=== PATIENT | female | born 1940 | race Caucasian/White ===

== ENCOUNTER 2024-05-21 14:40 | Inpatient (IN) | payer OTHER, SELFPAY ==
[2024-05-21] VITALS (12 sets, daily range): BP systolic 110–159; BP diastolic 43–110; BMI 31.8
[2024-05-21 11:58] LABS: % Basophils 0.6 % (0-2); % Eosinophils 2.8 % (0-6); % Immature Granulocytes 0.1 % (0-0.5); % Lymphocytes 11.2 % (20.5-51.1); % Monocytes 8.8 % (1.7-9.3); % Neutrophils 76.5 % (42.2-75.2); Absolute Eosinophils 0.2 10^3/uL (0-0.7); Absolute Lymphocytes 0.8 10^3/uL (1.2-3.4); Absolute Monocytes 0.6 10^3/uL (0.1-0.6); Absolute Neutrophils 5.1 10^3/uL (1.4-6.5); Hematocrit 37.7 % (37.0-47.0); Mean Corp Hgb Conc. 31.8 g/dL (33.0-37.0); Mean Corpuscular Hgb 28.5 pg (27.0-31.0); Mean Corpuscular Volume 89.5 fL (81.0-99.0); Mean Platelet Volume 11.1 fL (7.4-10.4); Nucleated Red Blood Cells % 0 %; Platelet Count 236 10^3/uL (130-400); Red Blood Cell Count 4.21 10^6/uL (4.20-5.40); Red Cell Dist. Width 14.3 % (11.5-14.5); White Blood Cell Count 6.7 10^3/uL (4.8-10.8)
--- NOTE | 2024-05-21 12:01 | ED.GENMED ---
History of Present Illness
General
Chief Complaint: Heart Rate Problem
Source: patient
Time Seen by Provider: 05/21/24 11:39
History of Present Illness
History of Present Illness:
84-year-old female brought to the emergency room from where she evidently did not want to get out of bed. She reportedly complained of chest pain and shortness of breath. Her vital signs were measured and she evidently was tachycardic.
911 was called. At the time of my evaluation the patient offers no complaints. She does not have any recollection of why she was brought to the emergency room. She is unable to provide any significant history.
1218: Spoke with patient's daughter who received a call from . Evidently the patient appeared short of breath when the aide came to give her her medication. She appeared to be gasping for air. Patient stated she also had chest pain.
Patient does have a history of atrial fibrillation for which she has been in a rate control management situation. Attempts were made to cardiovert her many years ago which were unsuccessful. Daughter states the patient does not typically complain
of chest pain. She will sometimes complain of palpitations due to A-fib.
Past History
Past History
ED Past Medical History: Arrthythmia and Other (diveticulsis); Negative GERD, HTN, Hypercholesterolemia, IDDM, NIDDM, [place] or Renal failure
ED Past Surgical History: Gynecological; Negative Appendectomy, Bowel resection, Brain or
Social History
Tobacco: Non-smoker
Alcohol: None
Drug: None
Employment: Employed
Family History
Family History: Hypertension
Phy Exam
Physical Exam
Physical Exam:
General: Awake, Alert, Oriented X1. No acute distress.
Vitals: Tach
Head: Atraumatic
Eyes: Pupils equal, EOMI
Throat: Airway intact, no exudates
Neck: Trachea midline
Lungs: Clear and equal b/l
Heart: Tachycardic, irregular rate, no murmurs
Neuro: Nonfocal
Skin: Warm, dry, no rash
Extremities: pulses equal b/l, no edema
Course
Orders/Labs/Results
Orders:
Orders
05/21/24
Electrocardiogram (*1) Stat
Reason for Study: Chest Pain
Comment: DPNE
05/21/24 Breakfast
Cholesterol Lowering
Fluid Restriction: 1200 mL/day (40 oz)
Cholesterol Lowering: Sodium, 2 Gram
05/21/24 11:10
EKG [Electrocardiogram (*1)] Urgent
Reason for Study: Atrial Fibrillation
EKG- Treatment ONCE
05/21/24 11:36
Complete Blood Count/With Diff Urgent
Comprehensive Metabolic Panel Urgent
Pro-BNP [NT-proBNP] Urgent
Troponin I Urgent
05/21/24 12:00
CR Chest - 2 Views Urgent
Comment:
Reason For Exam: shortness of breath
05/21/24 12:07
Prothrombin Time Urgent
05/21/24 13:31
Furosemide [Lasix] 40 mg IV NOW STA
05/21/24 13:54
Admit/Transfer Patient As Directed
Co-Sign Provider:
Level of Care: Inpatient admission
Assign to:: IMU- Intermediate Care
Physician / Group: [email or web address]
Diagnosis: atrial fib with RVR
Reason for Hospitalization: atrial fib with RVR
Expected length of stay greater than two midnights?: Yes
ELOS- Estimated Length of Stay in days: 3
I certify the patient meets the requirements for IP care: Yes
05/21/24 13:55
PRN Pain Medication Management As Directed
May give lesser potent ordered pain med per pt: Yes
preference::
Protocol:: Medication orders for pain may be administered in a
manner that supports deferring to patient preference
when the pt is:
- Requesting an ordered lesser potent pain medication.
Least to most potent pain medications are defined
as: acetaminophen < NSAID < tramadol < opioids
(morphine, oxycodone, hydromorphone).
- Requesting a lesser dose of the same medication IF
ORDERED.
- Requesting a less intrusive route of administration
if both routes are prescribed by the provider (PO <
IV).
05/21/24 13:56
Code Status As Directed
Resuscitation Status: Full Code
05/21/24 15:09
Echo 2D MMode Color/Doppler Routine
Reason for Study: heart failure
CARDIOLOGY CONSULT Routine
Consulting Provider: Abhay Haynes
Was physician already notified: Yes
HF DIETARY CONSULT Routine
HF EDUCATOR CONSULT Routine
Comment:
Activity As Directed
Activity Level: As Tolerated
Intake/ Output As Directed
Frequency: Per unit guidelines
Patient Education As Directed
Type: CHF folder
Comment: give on admission. Document in Interdisciplinary Education record
Sleep Apnea Assessment by RN As Directed
Comment:
Physician Instructions:
Vital Signs As Directed
Frequency: Other
Additional Instructions:: Q12 or per unit guidelines if more frequent.
Weight As Directed
Frequency: Daily
Type of Scale: Standing Scale
Comment: Daily morning weight. If unable to stand, use balanced bed scale.
Weight As Directed
Frequency: Once
Type of Scale: Standing Scale
Comment: Upon Admission. If unable to stand, use balanced bed scale.
Pulse Ox/cont/shift [RESP] Routine
Quantity: 1
Special Instructions: Daily pulse oximetry at rest. If greater than 92% at rest also obtain pulse oximetry
while ambulating as tolerated.
Pt Eval And Treat Routine
Activity Level: As Tolerated
05/21/24 20:00
Diltiazem [Cardizem] 30 mg PO BID
05/22/24 06:00
Basic Metabolic Panel IN AM
Cardiovascular Evaluation IN AM
Complete Blood Count/With Diff IN AM
Kqirt-Vlua-Kzacdck IN AM
Magnesium IN AM
PT/INR [Prothrombin Time] IN AM
TSH Reflex To Free T4 IN AM
05/22/24 08:00
Furosemide [Lasix] 40 mg IV DAILY
Metoprolol Xl [Toprol Xl] 100 mg PO DAILY
Triamcinolone Cream [Aristocort/Triamcinolone 0.1% Cream] See Dose Instructions TOPICAL DAILY
Warfarin [Coumadin] 5 mg PO DAILY
05/23/24 06:00
Basic Metabolic Panel IN AM
Complete Blood Count/With Diff IN AM
PT/INR [Prothrombin Time] IN AM
05/24/24 06:00
Basic Metabolic Panel IN AM
Complete Blood Count/With Diff IN AM
PT/INR [Prothrombin Time] IN AM
05/25/24 06:00
Complete Blood Count/With Diff IN AM
PT/INR [Prothrombin Time] IN AM
05/26/24 06:00
Complete Blood Count/With Diff IN AM
PT/INR [Prothrombin Time] IN AM
Abnormal Lab Results
05/21/24 05/21/24
11:36 12:07
MCHC 31.8 L g/dL
(33.0-37.0)
MPV 11.1 H fL
(7.4-10.4)
Absolute Lymphs (auto) 0.8 L 10^3/uL
(1.2-3.4)
Neutrophils % 76.5 H %
(42.2-75.2)
Lymphocytes % 11.2 L %
(20.5-51.1)
PT 19.9 H Sec
(11.4-14.6)
BUN 19 H mg/dl
(7-17)
Creatinine 0.4 L mg/dL
(0.6-1.0)
Alkaline Phosphatase 141 H U/L
(38-126)
Total Protein 6.2 L g/dl
(6.3-8.2)
Albumin 3.3 L g/dl
(3.5-5.0)
05/21/24 11:36
05/21/24 11:36
Vital Signs
Initial and Last Documented VS:
Initial Vital Signs
Pulse Resp BP Pulse Ox
108 17 155/81 96
05/21/24 11:16 05/21/24 11:16 05/21/24 11:16 05/21/24 11:16
Last Documented Vital Signs
Temp Pulse Resp BP Pulse Ox
98.1 F 152 20 157/110 97
05/21/24 11:29 05/21/24 14:30 05/21/24 14:00 05/21/24 13:41 05/21/24 13:30
MDM/Problems Addressed
Differential Diagnosis Includes:
Atrial fibrillation with rapid ventricular response, dehydration, anemia,
MDM/Problems Addressed:
Patient presents with chest pain, shortness of breath and heart rate that is elevated. Clinically she appears to have heart failure. Chest x-ray shows pleural effusions. Suspect her heart rate may be less than adequately controlled due to heart
failure. Started diuresis with 40 mg of IV Lasix. Patient will hospitalization for further treatment.
Chronic conditions affecting care: HTN and Arrhythmia (Atrial fibrillation)
*Radiology
Radiology exam reviewed: preliminary read by ED provider (Effusions and pulmonary edema)
*Pulse Oximetry
Patient hypoxic: no
*EKG
Interpreted by ED Provider?: Yes
Interpretation: abnormal
Heart Rate: 107
Rate: tachycardiac
Rhythm: a-fib
QRS Pattern: right bundle branch block (intermittent rbbb)
*Tile Layer Drainage Interpretation
Rate: tachycardiac
Interpretation: abnormal
Rhythm: a-fib
*Critical Care Note
Total Time (30-74mins, 75-104mins- exclusive of procedures): Not Applicable
ED Attending Note
-
Portions of this chart may have been created with voice recognition software.� Occasional wrong word or��sound alike� substitutions may have occurred due to the inherent limitations of voice recognition software.
Discharge Plan
Departure
Patient Disposition: Admit
Date of Disposition: 05/21/24
Time of Disposition: 13:33
Presentation/result/management discussed w/ accepting MD/DO: Hospitalist
Condition: Fair
Discharge Problem:
CHF (congestive heart failure)
Interventions
Interventions:
*Risk Screen - Suicide Last Done: 05/21/24 11:32
*General Assessment Last Done: 05/21/24 15:20
*Neglect/Abuse Screening Last Done: 05/21/24 11:32
ED- Fall Risk Assessment Last Done: 05/21/24 11:32
*ED COVID-19 Vaccine History Last Done: 05/21/24 15:20
*Nursing Disposition Last Done: 05/21/24 15:20
ED- Cardiac Assessment Last Done: 05/21/24 11:32
ED- Pulmonary Assessment Last Done: 05/21/24 11:32
Discharge Date and Time
Discharge Date/Time: 05/21/24 15:21
[2024-05-21 12:24] LABS: ALT (SGPT) 25 U/L (0-35); AST (SGOT) 31 U/L (14-36); Albumin 3.3 g/dl (3.5-5.0); Alkaline Phosphatase 141 U/L (38-126); Blood Urea Nitrogen 19 mg/dl (7-17); Calcium 8.4 mg/dl (8.4-10.2); Carbon Dioxide 26 mmol/L (22-30); Chloride 107 mmol/L (98-107); Estimated Creatinine Clearance 87 ml/min; Glucose 96 mg/dl (70-99); Potassium 3.7 mmol/L (3.5-5.1); Sodium 141 mmol/L (135-145); Total Bilirubin 0.9 mg/dl (0.2-1.3); Total Protein 6.2 g/dl (6.3-8.2); eGFR > 60.00
[2024-05-21 12:25] LABS: NT-proBNP 960 pg/ml; Troponin I < 0.012 ng/ml
[2024-05-21 12:34] LABS: INR 1.71; PT 19.9 Sec (11.4-14.6)
--- NOTE | 2024-05-21 13:38 | HPS.HSE ---
Family Physician
-
Family Physician: Spencer Velazquez MD
Chief Complaint
-
sob
chest pain
History of Present Illness
84-year-old female with PMH for cognitive impairment, atrial fib with chest pain,and sob this morning. patient is coming from [facility]. she was noted sob at [place]. at present denied chest pain, sob. denied fever, chills, runny nose, congestion,
cough.denied abdominal pain,n,v,d. denied dysuria or hematuria. she was noted tachycardic at AL. patient does not remember any thing.
upon arrival she was noted in atrial fib with RVR. she was given Lasix in ER. admitting for further management.
Medical History
Past Medical History
Past Medical History: Reports Other
Additional Past Medical History:
atrial fib
cognitive impairment
Past Surgical History: Reports None
Social History
Unable to obtain full social history at this time due to: Dementia
Family History
Family History: Not pertinent
Allergies / Home Medications
Allergies reflects when Allergies were last updated in [facility]
Home Medications with original date entered in [facility]
Allergy/Medication List:
Allergies
Allergy/AdvReac Type Severity Reaction Status Date / Time
levofloxacin [From Levaquin] Allergy dizzy Verified 11/04/10 12:45
metronidazole [From Flagyl] Allergy vomiting Verified 11/04/10 12:45
Metronidazole HCl Allergy vomiting Verified 11/04/10 12:45
[From Flagyl]
Home Medications
warfarin 5 mg tablet 5 mg PO DAILY 11/04/10
diltiazem HCl 30 mg tablet 30 mg PO BID 05/21/24
furosemide 20 mg tablet 20 mg PO DAILY 05/21/24
metoprolol succinate 100 mg tablet,extended release 24 hr 100 mg PO DAILY 05/21/24
triamcinolone acetonide 0.1 % topical cream 1 applic topical DAILY 05/21/24
Review of Systems
-
Constitutional: Reports No Symptoms
EENT: Reports No Symptoms
Respiratory: Reports No Symptoms
Cardiac: Reports No Symptoms
Abdomen/GI: Reports No Symptoms
: Reports No Symptoms
Musculoskeletal: Reports No Symptoms
Skin: Reports No Symptoms
Neurological: Reports No Symptoms
Endocrine: Reports No Symptoms
Hematologic/Lymphatic: Reports No Symptoms
Psych: Reports No Symptoms
Physical Exam
Vital Signs
Vital Signs
Temp Pulse Resp BP Pulse Ox
98.1 F 134 19 152/107 97
05/21/24 11:29 05/21/24 13:30 05/21/24 13:30 05/21/24 13:17 05/21/24 13:30
Physical Exam
General: Well Developed, Well Nourished and No Apparent Distress
HEENT: NormoCephalic, Moist mucous membranes and Atraumatic
Respiratory: Decreased Breath Sounds
Cardiac: Irregular Rhythm, Tachycardia and Peripheral Edema (LE edema); No Murmur or Rub
GI: Soft, Non Tender, Non Distended and Normal Bowel Sounds; No Organomegaly
Rectal: Deferred by Provider
Musculoskeletal: No Clubbing and No Cyanosis
Skin: No Rash
Neuro: Nonfocal/grossly intact
Psych: Confused
Laboratory Results
-
05/21/24 11:36
05/21/24 11:36
Laboratory Results
PT 19.9 Sec (11.4-14.6) H 05/21/24 12:07
INR 1.71 05/21/24 12:07
Total Bilirubin 0.9 mg/dl (0.2-1.3) 05/21/24 11:36
AST 31 U/L (14-36) 05/21/24 11:36
ALT 25 U/L (0-35) 05/21/24 11:36
Alkaline Phosphatase 141 U/L (38-126) H 05/21/24 11:36
Troponin I < 0.012 ng/ml 05/21/24 11:36
Data Reviewed
-
Lab Data: Labs Reviewed by me
Impression/Plan
-
#CHF exacerbation
-BNp 960
-chest x ray pending
-Lasix in ER
-continue lasix 40mg daily
-strict I &O
-daily weight
-fluid restriction
-obtain ECHO
-cardiology consulted
#atrial fib with RVR
-HR in 130's
-EKG with atrial fib with RVR
-diltiazem continued
-metoprolol continued
-Coumadin continued
#DVT prophylaxis
-warfarin
#CODE status
-full code
[2024-05-21] MEDS: LASIX 40 MG IV (13:40)
--- NOTE | 2024-05-21 14:18 | W.PN.UPDATE ---
Update Note
Progress Note Update
I could not get any information from the patient is confused with mild dementia /MCI
Information gathered by chart review and speaking with the ER staff.
This note serves as an addendum to the H&P by maintenance and utilities supervisor BAKARI Patience CONTRERAS
HPI
84F Non smoker , BIB [facility] HX mild dementia/MCI , HX AF on Warfarin, remote HX failed attepmted CV for AF, HTN, DM, CKD sent to ER for CP and SOB
Denied CP at ER,
VS: irregular HR 130s . BP 157/110. POx hi 90s on RA
OE:
POS JVD
symmetric AE with basilar rales
B/L Jennifer 3 plus edema
W/U
EKG c/w fast AF , VR 120- 140s
CXR suggestive of CHF: s/p IV lasix 40 at ER.
Unremarkable CBC
Unremarkable CMP
NEG No.1 TPN
pro BNP 960: No prior ECHO
INR 1.9
ASSESSMENT & PLAN
Volume overload
Acute HF suspect CHF NOS
Fast AF due to acute HF: HX chr AF on Warfarin: INR1.9
- c/w IV Lasix 40 daily; f/u Wt and IOs, daily BMP
- PO Cardizem 60 mg once: cont Cardizem 30 mg q6H
- c/w Warfarin : daily INR
- ECHO
- DCA card consult
DVT Px: on Warfarin
Code: full code
IP TLM
--- NOTE | 2024-05-21 15:08 | CON.CAR ---
Addendum entered and electronically signed by Colton Castellano DO 05/21/24 16:13:
I saw and examined the patient.
The Grain Cleaner's note was reviewed and I agree with the note.
Comment:
Briefly, patient is a pleasant 84-year-old female with a past medical history significant for likely permanent atrial fibrillation, chronic anticoagulation on Coumadin, dementia/cognitive impairment (ANO x 1�self only), hypertension, complete
records unavailable, who previously follow-up with Dr. Paz for cardiovascular care who presented reportedly due to shortness of breath and discomfort in the chest. In discussion with patient today, she denies any complaints at this time.
Patient noted to be in AF RVR 130 to 150 bpm hemodynamically stable. Patient denies any chest pain, shortness of breath, lightheadedness, dizziness, near-syncope, syncope, PND, orthopnea, or weakness. Patient does note bilateral lower extremity
swelling but cannot recall how long it has been going on. Patient notes that she takes cardiovascular meds but is unsure the names. Patient lives at assisted [facility] where she receives her care. As noted, patient BNP 960,
troponin negative, EKG AF RVR, remaining lab work unremarkable aside from mild hypokalemia 3.7. Examination demonstrates bibasilar crackles, bilateral lower extremity swelling, and patient does report that she feels more comfortable while sitting
upright on the commode rather than laying in bed which may represent orthopnea.
Exam as below
A/P as below
Patient is acute on chronic heart failure with unclear LVEF as records unavailable. Noted by examination and elevated BNP without prior diagnosis of heart failure. Patient currently in AF RVR unclear chronicity based on her atrial fibrillation.
It is likely, patient noted to have AF in 2010, that this is permanent atrial fibrillation for which she is minimally symptomatic. The elevated rate may be physiologic in nature given her acute on chronic heart failure. With this in mind:
� IV diuresis, strict intake and output, monitor renal function and electrolytes
� Replete electrolytes goal potassium greater than 4, magnesium greater than 2
� Rule out other etiologies for patient to be in AF RVR which may be physiologic including infectious etiology
� Diltiazem drip for rate control and assistance in diuresis
� 2D echocardiogram to assess patient's cardiac function and valvular anatomy
� Continue Coumadin goal INR 2�3; patient may benefit from DOAC however unclear at this time reason for patient being on Coumadin. Awaiting records from primary dye range tender office
� Further recommendations to follow
Original Note:
Consultation
Consultation Request
Date/Time Consultation Requested: 05/21/2024
Date/Time Consultation Performed: 05/21/2020
Requesting Provider: Dr. Batista
Performing Provider: Charline Vegas PA-C for Dr. Castellano
Reason for Consultation: Atrial fibrillation with rapid ventricular response, shortness of breath
Medical History
-
History of Present Illness:
Patient is an 84-year-old female with past medical history for permanent atrial fibrillation on chronic anticoagulation with Coumadin, dementia/cognitive impairment and hypertension who presents from [facility] with complaints of
shortness of breath, chest discomfort and tachycardia. Patient was found to be in atrial fibrillation with rapid ventricular response on arrival to emergency department. Chest x-ray demonstrated small bilateral pleural effusions and patchy
parenchymal opacity in bilateral lower lungs likely atelectasis. Troponin negative. proBNP 960. INR 1.71. Patient was given IV Lasix 40 mg in emergency department.
Patient is very poor historian and history obtained by review of records and coordinating care providers.
PMH:
Permanent atrial fibrillation
Chronic anticoagulation on warfarin
Hypertension
Cognitive impairment/dementia
Past Medical History
Past Medical History: Other (See HPI)
Past Surgical History: Appendectomy, Bowel Resection and
Social History
Tobacco: Non-Smoker
Alcohol: None
Drug: None
Living: Prison
Family History
Family History: Reviewed & Not Pertinent
Allergies / Home Medications
Allergy/AdvReac Type Severity Reaction Status Date / Time
levofloxacin [From Levaquin] Allergy dizzy Verified 11/04/10 12:45
metronidazole [From Flagyl] Allergy vomiting Verified 11/04/10 12:45
Metronidazole HCl Allergy vomiting Verified 11/04/10 12:45
[From OWMyl]
�Medication �Instructions �Recorded �Confirmed �Type
warfarin 5 mg tablet 5 mg PO DAILY 11/04/10 05/21/24 History
diltiazem HCl 30 mg tablet 30 mg PO BID 05/21/24 05/21/24 History
furosemide 20 mg tablet 20 mg PO DAILY 05/21/24 05/21/24 History
metoprolol succinate 100 mg 100 mg PO DAILY 05/21/24 05/21/24 History
tablet,extended release 24 hr
triamcinolone acetonide 0.1 % 1 applic topical DAILY 05/21/24 05/21/24 History
topical cream
Review of Systems
-
Unable to obtain full review of systems at this time due to: Dementia
History Source: Transfer Record and Coordinating Provider
Physical Exam
Vital Signs
Temp Pulse Resp BP Pulse Ox
98.1 F 152 20 157/110 97
05/21/24 11:29 05/21/24 14:30 05/21/24 14:00 05/21/24 13:41 05/21/24 13:30
GEN: No distress, awake, alert to self only
HEENT: supple, anicteric, mmm
LUNGS: Decreased breath sounds at bases otherwise CTA, no wheezes/rales
CV: Irregularly irregular, tachycardic, S1/S2, 1/6 syst LSB murmur, no rub or gallop
ABD: soft, BS+, NT/ND
EXT: +2 bilateral pitting lower extremity edema
NEURO: Pleasantly demented
SKIN: Rash noted on lower extremities, arm, back. Areas of excoriation also noted
Lab Results
05/21/24 11:36
05/21/24 11:36
Troponin I < 0.012 ng/ml 05/21/24 11:36
Ayd-D-Jwyuyxqskld Pept 960 pg/ml 05/21/24 11:36
Impression / Plan
-
PCP: Spencer Velazquez
Service Associate: Previously followed by Dr. Jarad Rosas who has retired, initial consult Dr. Colton Castellano
Impression:
Presents 05/21/2024 with shortness of breath, palpitations, tachycardia, chest discomfort
Atrial fibrillation with rapid ventricular response
Acute on chronic heart failure with unknown ejection fraction, proBNP 960
Pleural effusions
Permanent atrial fibrillation
Chronic anticoagulation on Coumadin
Hypertension
Cognitive impairment/dementia
Plan:
Presents 05/21/2024 from [place] with shortness of breath, palpitations, tachycardia, chest discomfort
Atrial fibrillation with rapid ventricular response
Rate control with IV diltiazem gtt. pending results of echocardiogram can make further decision on antiarrhythmic drug therapy versus uptitrating diltiazem
Monitor on telemetry
Maintained on warfarin with INR subtherapeutic 1.71. Consider transitioning to Eliquis or Xarelto if no contraindication
Check TSH
check echo
Patient maintained on diltiazem 30 mg twice daily and metoprolol 100 mg daily as outpatient
Acute on chronic heart failure with unknown ejection fraction, proBNP 960
Patient provided 40 mg IV Lasix in emergency department. Monitor and trend response. Patient takes Lasix 20 mg daily as outpatient
Continue IV diuresis with Lasix 40 mg daily
Daily weights, I's and O's
BMP in a.m.
Would check echo as unknown ejection fraction
Pleural effusions small bilateral. Monitor with IV diuresis.
Hypertension maintained on Toprol 100 mg daily and diltiazem 30 mg twice daily as outpatient. Continue to monitor and trend blood pressure with diuresis
Requested records from outpt dye range tender Dr. Jarad Rosas
HPI 05/21/2024:
Patient is an 84-year-old female with past medical history for permanent atrial fibrillation on chronic anticoagulation with Coumadin, dementia/cognitive impairment and hypertension who presents from [facility] with complaints of
shortness of breath, chest discomfort and tachycardia. Patient was found to be in atrial fibrillation with rapid ventricular response on arrival to emergency department. She was placed on IV diltiazem drip. Chest x-ray demonstrated small
bilateral pleural effusions and patchy parenchymal opacity in bilateral lower lungs likely atelectasis. Troponin negative. proBNP 960. INR 1.71. Patient was given IV Lasix 40 mg in emergency department.
Patient is very poor historian and history obtained by review of records and coordinating care providers.
Data Reviewed
-
EKG: Report Reviewed by me, Discussed with Physician, Discussed with Nurse and Discussed with Patient
Radiology: Report Reviewed by me, Discussed with Physician, Discussed with Nurse and Discussed with Patient
Labs: Labs Reviewed by me, Discussed with Physician, Discussed with Nurse and Discussed with Patient
Old Records: Reviewed
--- NOTE | 2024-05-21 15:20 | PTCARENOTE ---
Patient arrived via stretcher. She is oriented to person and place, but is poor historian. She cannot recall how she got to the hospital. She does not where or when the rash began-it is diffuse on back, legs arms torso. She is scratching all areas.
Heart rate is A-fib 140s, BP 152/96 She is 94% on room air
--- NOTE | 2024-05-21 15:41 | PTCARENOTE ---
Call to Dr. Batista and awaiting orders. cardiology at bedside now and aware of heart rate and BP
[2024-05-21] MEDS: ARISTOCORT/TRIAMCINOLONE 0.1% CREAM 1 APPLIC TOPICAL (16:24)
[2024-05-21] MEDS: CARDIZEM 125 IV (16:26)
[2024-05-21] MEDS: BENADRYL ELIXIR 12.5 MG PO (16:33)
--- NOTE | 2024-05-21 18:32 | PTCARENOTE ---
Patient restless, unsure of why she is here and getting in/out bed without using call light. pt does have history of dementia , med [employer] mobile unit set up in room for pt safety. Pt does not follow through with call light. Pt on Cardizem gtt and
heart rate continues >100. Roseline SINGLETON aware of persistent elevated heart rate. p.o. Cardizem doses will be given as ordered. This RN attempting to use Purewick for pt to remain at rest, but pt struggling to understand concept. Daughter Kat
arrived and has been updated on plan of care and treatment plan. Kat reports the skin rash on pt has been present since FEBRUARY.
[2024-05-21] MEDS: CARDIZEM 30 MG PO (20:01)
[2024-05-22] VITALS (15 sets, daily range): BP systolic 108–135; BP diastolic 51–94; PULSE 58; O2SAT 95; BMI 29.8
[2024-05-22] MEDS: CARDIZEM 125 IV (01:21)
[2024-05-22] MEDS: BENADRYL ELIXIR 12.5 MG PO ×2 (02:56→21:41)
--- NOTE | 2024-05-22 03:38 | PTCARENOTE ---
Patient able to sleep until about 3AM, then woke up restless and c/o severe itching to entire back. Back rub provided with moisture barrier and Benadryl prn. Pt has scratched areas on her back that have a small amount of old bleeding. Bilat LE pink,
irritated and swollen. Pt forgetful but pleasant. Tele showing Afib HR 100-130s yesterday evening, now HR is 70-90s. Voids in BSC; HR increased to 120-130s briefly upon exertion. Denies any dizziness or palpitations. Reports PACHECO. Cardizem gtt
titrated per the worklist. Able to turn self while in bed. Med-sitter at bedside for safety. Call floyd and tray table within reach. RN sitting outside closest nurses station for closer observation.
[2024-05-22 03:54] LABS: % Basophils 0.6 % (0-2); % Eosinophils 1.7 % (0-6); % Immature Granulocytes 0.2 % (0-0.5); % Lymphocytes 8.7 % (20.5-51.1); % Monocytes 7.9 % (1.7-9.3); % Neutrophils 80.9 % (42.2-75.2); Absolute Basophils 0.1 10^3/uL (0-0.2); Absolute Eosinophils 0.1 10^3/uL (0-0.7); Absolute Lymphocytes 0.7 10^3/uL (1.2-3.4); Absolute Monocytes 0.6 10^3/uL (0.1-0.6); Absolute Neutrophils 6.6 10^3/uL (1.4-6.5); Hematocrit 37.5 % (37.0-47.0); Hemoglobin 12.2 g/dL (12.0-16.0); Mean Corp Hgb Conc. 32.5 g/dL (33.0-37.0); Mean Corpuscular Hgb 29.2 pg (27.0-31.0); Mean Corpuscular Volume 89.7 fL (81.0-99.0); Mean Platelet Volume 10.7 fL (7.4-10.4); Nucleated Red Blood Cells % 0 %; Platelet Count 258 10^3/uL (130-400); Red Blood Cell Count 4.18 10^6/uL (4.20-5.40); Red Cell Dist. Width 14.2 % (11.5-14.5); White Blood Cell Count 8.1 10^3/uL (4.8-10.8)
[2024-05-22 03:58] LABS: INR 1.53; PT 18.2 Sec (11.4-14.6)
[2024-05-22 04:07] LABS: ALT (SGPT) 28 U/L (0-35); AST (SGOT) 34 U/L (14-36); Albumin 3.8 g/dl (3.5-5.0); Alkaline Phosphatase 155 U/L (38-126); Blood Urea Nitrogen 23 mg/dl (7-17); Calcium 9.5 mg/dl (8.4-10.2); Carbon Dioxide 28 mmol/L (22-30); Chloride 103 mmol/L (98-107); Direct Bilirubin 0.2 mg/dl (0.0-0.4); Estimated Creatinine Clearance 87 ml/min; Glucose 135 mg/dl (70-99); HDL Cholesterol 82 mg/dl; LDL Cholesterol, Calculated 117 mg/dl; Magnesium 1.8 mg/dl (1.6-2.3); Potassium 3.7 mmol/L (3.5-5.1); Sodium 141 mmol/L (135-145); Total Bilirubin 1.3 mg/dl (0.2-1.3); Total Cholesterol 215 mg/dl (50-199); Total Protein 6.6 g/dl (6.3-8.2); Triglyceride 83 mg/dl (10-149); Very Low Density Lipoprotein 16 mg/dl (0-30); eGFR > 60.00
[2024-05-22 04:37] LABS: TSH Reflex To Free T4 2.77 uIU/ml (0.47-4.68)
[2024-05-22] MEDS: ARISTOCORT/TRIAMCINOLONE 0.1% CREAM 1 APPLIC TOPICAL (10:00)
[2024-05-22] MEDS: COUMADIN 5 MG PO (10:00)
[2024-05-22] MEDS: LASIX 40 MG IV (10:01)
[2024-05-22] MEDS: TOPROL XL 100 MG PO (10:01)
[2024-05-22] MEDS: CARDIZEM 30 MG PO ×2 (10:02→20:53)
--- NOTE | 2024-05-22 10:09 | PTCARENOTE ---
Cardizem gtt stopped at this time per Dr. Best, HR has been 70-90's. PO Cardizem administered with am med pass.
--- NOTE | 2024-05-22 12:04 | PTCARENOTE ---
Pt's remains pleasantly confused, forgetful, oriented to self only. Bed and chair alarms armed. Pt assisted up to chair this am and remains there. Oral care provided after breakfast, pt took PO medications with water, ambulated in navarrete with PT
around 11:30. Daughter updated via phone by this RN. Pt's HR dipping to 39-50 range with occ pauses, cards notified by TT, no further orders at this time. Safe environment maintained.
--- NOTE | 2024-05-22 12:11 | W.PN.CARDCBS ---
Today's Communication / Plan
-
Stop Cardizem drip. Watch for bradycardia.
Continue oral Cardizem and Toprol with parameters. Rec rate control
Continue IV Lasix and follow creatinine.
Await echo.
Impression / Plan
-
PCP: Spencer Velazquez
Assistant Clinical Director: Previously followed by Dr. Jarad Rosas who has retired, initial consult Dr. Colton Castellano
Impression:
Presents 05/21/2024 with shortness of breath, palpitations, tachycardia, chest discomfort
Atrial fibrillation with rapid ventricular response
Acute on chronic heart failure with unknown ejection fraction, proBNP 960
Pleural effusions
Permanent atrial fibrillation
Chronic anticoagulation on Coumadin
Hypertension
Cognitive impairment/dementia
Plan:
Presents 05/21/2024 from [place] with shortness of breath, palpitations, tachycardia, chest discomfort
Atrial fibrillation with rapid ventricular response
Now off Cardizem drip with some bradycardia. Continue to follow. Would continue Toprol 100 mg XL daily and diltiazem 30 mg p.o. twice daily.
Will need to watch for bradycardia. Continue Coumadin. INR 1.53
Acute on chronic heart failure with unknown ejection fraction, proBNP 960
Continue diuresis with Lasix 40 mg IV twice daily. CHF education. Check echocardiogram today.
Creat normal at 0.6
Pleural effusions small bilateral. Monitor with IV diuresis.
Hypertension maintained on Toprol 100 mg daily and diltiazem 30 mg twice daily as outpatient. Continue to monitor and trend blood pressure with diuresis
[facility] 05/21/2024:
Patient is an 84-year-old female with past medical history for permanent atrial fibrillation on chronic anticoagulation with Coumadin, dementia/cognitive impairment and hypertension who presents from [facility] with complaints of
shortness of breath, chest discomfort and tachycardia. Patient was found to be in atrial fibrillation with rapid ventricular response on arrival to emergency department. She was placed on IV diltiazem drip. Chest x-ray demonstrated small
bilateral pleural effusions and patchy parenchymal opacity in bilateral lower lungs likely atelectasis. Troponin negative. proBNP 960. INR 1.71. Patient was given IV Lasix 40 mg in emergency department.
Patient is very poor historian and history obtained by review of records and coordinating care providers.
Progress Note - Assistant Clinical Director
Subjective
Denies chest pains or shortness of breath.
Objective
Labs:
05/22/24 03:31
05/22/24 03:31
Labs
Hgb 12.2 g/dL (12.0-16.0) 05/22/24 03:31
Hct 37.5 % (37.0-47.0) 05/22/24 03:31
Plt Count 258 10^3/uL (130-400) 05/22/24 03:31
PT 18.2 Sec (11.4-14.6) H 05/22/24 03:31
INR 1.53 05/22/24 03:31
Sodium 141 mmol/L (135-145) 05/22/24 03:31
Potassium 3.7 mmol/L (3.5-5.1) 05/22/24 03:31
BUN 23 mg/dl (7-17) H 05/22/24 03:31
Creatinine 0.6 mg/dL (0.6-1.0) 05/22/24 03:31
Glucose 135 mg/dl (70-99) H 05/22/24 03:31
Troponins
05/21/24
11:36
Troponin I < 0.012
Vital Signs and I&O:
Vital Signs
Temp Pulse Resp BP Pulse Ox
98.3 F 72 19 108/67 95
05/22/24 07:51 05/22/24 12:00 05/22/24 12:00 05/22/24 12:00 05/22/24 12:00
Vital Signs
Temp Pulse Resp BP Pulse Ox
98.3 F 72 19 108/67 95
05/22/24 07:51 05/22/24 12:00 05/22/24 12:00 05/22/24 12:00 05/22/24 12:00
Intake & Output
05/20/24 05/21/24 05/22/24 05/23/24
06:59 06:59 06:59 06:59
Intake Total 240 / 240 480 / 480
Output Total 2725 / 2725
Balance -2485 / -2485 480 / 480
Physical Exam
Physical Exam
GEN: No distress, awake,
HEENT: supple, anicteric, mmm
LUNGS: scatt rhonchi
CV: Irreg, S1/S2, 1/6 syst LSB, S4+
ABD: soft, BS+, NT/ND
EXT: ++ edema
NEURO: Gross non-focal
SKIN: No rash
--- NOTE | 2024-05-22 13:22 | WOUNDNOTE ---
R POSTERIOR LOWER LEG
--- NOTE | 2024-05-22 13:25 | WOUNDNOTE ---
WON RN NOTE: Patient admitted with CHF from [facility]. Asked to see patient for diffuse rash on limbs. Nurse Reports she has had rash since February according to patient's daughter. Received patient in recliner chair, scratching at R posterior leg.
Rash seems to be resolving on limbs, very faint pink patches in places. Skin on legs very dry. Sacrum and heels intact. Applied Triamcinolone that was on order to legs and back. Patient states its less itchy now. Instructed patient not to scratch
legs, nurse Disa updated on the above. Recommend continue using above cream, will sign off.
--- NOTE | 2024-05-22 16:02 | W.PN.HOSP.TC ---
Today's Communication/Plan
-
follow HR next 24 hrs, if continues to do well and cardio in agreement, potential dc to facility tomorrow
Assessment / Plan
Assessment / Plan
#CHF exacerbation
-BNp 960
-chest x ray: Small bilateral pleural effusions, new from examination 2010. Patchy parenchymal opacity within both lower lungs, most likely atelectasis, although pneumonia could have a similar appearance.
Cardiomegaly. No convincing radiographic evidence for active vascular congestion.
-Lasix in ER
-continue lasix 40mg daily
-strict I &O
-daily weight
-fluid restriction
- ECHO: Normal left ventricular chamber size. Mild concentric left ventricular
hypertrophy. Normal regional wall motion. Normal left ventricular systolic
function. Left ventricular ejection fraction is 67% by Suh's biplane method
of discs. Diastolic function indeterminate due to atrial fibrillation.
Normal right ventricular size and function.
Moderate mitral regurgitation.
Mild to moderate tricuspid regurgitation. Estimated pulmonary artery pressure
of 65 mmHg, assuming a right atrial pressure of 8 mmHg.
-cardiology consulted, input appreciated
#atrial fib with RVR
-HR in 130's on admission, now in 70's
-EKG with atrial fib with RVR
-diltiazem continued
-metoprolol continued
-Coumadin continued,will give extra 2 mg now and recheck in AM, consider uptitrate to 6 mg daily
#DVT prophylaxis
-warfarin
Reviewed fully with Kat silverio
#CODE status
-reviewed with dgt, pt is a DNR
Anticipated Discharge: 24 - 48 hours
Subjective/Interval History
-
Date of Service: May 22, 2024
awake alert, sitting in chair
Objective Data
-
Labs:
Laboratory Results
05/22/24
03:31
PT 18.2 H
INR 1.53
Sodium 141
Potassium 3.7
Chloride 103
Carbon Dioxide 28
BUN 23 H
Creatinine 0.6
Glucose 135 H
Calcium 9.5
Total Bilirubin 1.3
AST 34
ALT 28
Alkaline Phosphatase 155 H
Vital Signs:
Vital Signs
Temp Pulse Resp BP Pulse Ox
97.7 F 78 19 126/57 95
05/22/24 15:28 05/22/24 14:00 05/22/24 14:00 05/22/24 14:00 05/22/24 12:00
I&O
05/21/24 05/22/24 05/23/24
06:59 06:59 06:59
Intake Total 240 / 240 480 / 480
Output Total 2725 / 2725
Balance -2485 / -2485 480 / 480
Review of Systems
-
Unable to obtain full review of systems at this time due to: Dementia
History Source: Family (reviewed with dgt)
Constitutional: Denies Fever
EENT: Reports No Symptoms Reported
Respiratory: Reports No Symptoms
Cardiac: Reports No Symptoms
Abdomen/GI: Reports No Symptoms
Musculoskeletal: Reports No Symptoms
Physical Exam
-
General: Well Developed, Well Nourished and No Apparent Distress
HEENT: Normocephalic, Atraumatic and Moist Mucous Membranes
Respiratory: Clear to Auscultation, Wheezes and Rales
Cardiac: S1/S2 and Irregular Rhythm
GI: Soft, Nontender and Nondistended
Musculoskeletal: No Clubbing, No Cyanosis and No Edema
Neuro: Awake and Alert
[2024-05-22] MEDS: COUMADIN 2 MG PO (16:28)
--- NOTE | 2024-05-22 16:29 | PTCARENOTE ---
Plan reviewed with Dr. Perez, who called daughter for update and conversation re: plan of care. Orders for urine specimen rec'd, DNR orders noted, pt will possibly dc tomorrow. Discussed possibly downgrading pt, per DR. Perez, keep in IMU since
she will most likely discharge in am, unless bed is needed, then ok to downgrade. Pt remains very pleasantly confused/forgetful, easily reporiented. Med Sitter dc's, bed and chair alarm in place. Pt steady gait on ambulation with only standby assist
required/
--- NOTE | 2024-05-22 16:43 | CM ---
Patient from [facility] with Dx CHF exacerbation, Afib with RVR. Room air. Cardizem gtt switched to PO. PT recommends HH. Per nurse assessment; forgetful. Medsitter.
Spoke with nurse Navya [facility];
the patient resides there with her .
She is somewhat confused at baseline.
The patient requires assistance with ADLs.
She is able to ambulate to the dining room.
DME - none
There are no additional services in place such as VN for PT/OT.
If VN is needed please refer to [facility].
The ph for nurse report [phone], fax [phone].
Spoke with patient who appeared alert/conversational;
she confirms she has no DME at home.
She is agreeable to [facility] VN for PT.
Pharmacy - [facility] [place]
Referral to [facility].
Plan contact daughter when closer to d/c.
Plan return to [facility] with [facility].
--- NOTE | 2024-05-22 21:02 | PTCARENOTE ---
Addendum entered by Justyna Ann RN 05/22/24 22:42:
Pt having complaints of itching, medication given (see MAR)
Original Note:
Pt pleasant AAOx1-2 knows she is in hospital. pt brushing her teeth twice due to memory. Pt had no complaints at this time. Assessment care and vitals as charted.
[2024-05-23] VITALS (7 sets, daily range): BP systolic 120–150; BP diastolic 54–80; BMI 29.5
--- NOTE | 2024-05-23 04:15 | DOWNTIME ---
There was a [email or web address] Client Conveyor Technician Downtime on 05/23/2024 from 0100 to 05/23/2024 at 0355. Downtime documentation of patient's care, including medication administrations, has been reconciled in the electronic record per guidelines. Refer to the
patient's paper chart under the miscellaneous tab to see printed paper medication records and downtime forms.
[2024-05-23 05:39] LABS: % Basophils 0.5 % (0-2); % Eosinophils 3.7 % (0-6); % Immature Granulocytes 0.3 % (0-0.5); % Lymphocytes 9.1 % (20.5-51.1); % Monocytes 8.6 % (1.7-9.3); % Neutrophils 77.8 % (42.2-75.2); Absolute Eosinophils 0.3 10^3/uL (0-0.7); Absolute Lymphocytes 0.7 10^3/uL (1.2-3.4); Absolute Monocytes 0.7 10^3/uL (0.1-0.6); Hematocrit 36.6 % (37.0-47.0); Hemoglobin 11.8 g/dL (12.0-16.0); Mean Corp Hgb Conc. 32.2 g/dL (33.0-37.0); Mean Corpuscular Hgb 28.2 pg (27.0-31.0); Mean Corpuscular Volume 87.6 fL (81.0-99.0); Mean Platelet Volume 10.5 fL (7.4-10.4); Nucleated Red Blood Cells % 0 %; Platelet Count 251 10^3/uL (130-400); Red Blood Cell Count 4.18 10^6/uL (4.20-5.40); Red Cell Dist. Width 14.2 % (11.5-14.5); White Blood Cell Count 7.7 10^3/uL (4.8-10.8)
[2024-05-23 05:53] LABS: INR 1.66; PT 19.4 Sec (11.4-14.6)
[2024-05-23 06:00] LABS: Blood Urea Nitrogen 25 mg/dl (7-17); Calcium 9.1 mg/dl (8.4-10.2); Carbon Dioxide 28 mmol/L (22-30); Chloride 102 mmol/L (98-107); Estimated Creatinine Clearance 84 ml/min; Glucose 113 mg/dl (70-99); Potassium 3.5 mmol/L (3.5-5.1); Sodium 140 mmol/L (135-145); eGFR > 60.00
--- NOTE | 2024-05-23 08:48 | W.PN.CARDCBS ---
Addendum entered and electronically signed by Dominic Landaverde DO 05/23/24 12:05:
I saw and examined the patient.
The Patient Case Coordinator's note was reviewed and I agree with the note.
Comment:
Plan:
Appears euvolemic. Transition to oral lasix 40 mg daily.
Cont rate control of perm Afib. Cont Toprol and Cardizem. stable HR and bp.
Cont coumadin
Echo with preserved EF
Outpt follow up to be arranged.
Original Note:
Today's Communication / Plan
-
Continue diuresis
Replete K
Impression / Plan
-
PCP: Spencer Velazquez
Night Baker: Previously followed by Dr. Jarad Rosas who has retired, initial consult Dr. Colton Castellano
Impression:
Presented w/ SOB, palpitations, chest discomfort
Permanent atrial fibrillation, now w/ rapid ventricular response
Acute on chronic HFpEF
Pleural effusions
Chronic anticoagulation on Coumadin
Hypertension
Cognitive impairment/dementia
Echo 05/22/2024: EF 67%, mild cLVH, moderate MR, mild to moderate TR, estimated PAP 65 mmHg
Plan:
-Presented with SOB, palpitations, and chest discomfort. Found to be in acute heart failure and rapid atrial fibrillation.
-Initially rate controlled w/ cardizem gtt. Stopped 05/22 due to bradycardia. Continue OP regimen of Toprol 100mg daily and diltiazem 30mg BID. HRs stable/improved overnight.
-Continue coumadin for anticoagulation. INR 1.66.
-In acute heart failure on admission, diuresing with IV lasix 40mg BID.
-Creat stable at 0.6. Weight down 14lbs if accurate, down to 194lbs.
-Echo 05/22 with EF 67% and moderate MR as noted above.
-Noted to have small b/l pleural effusions on initial CXR. Follow w/ diuresis.
-K 3.5, will replete.
HPI 05/21/2024:
Patient is an 84-year-old female with past medical history for permanent atrial fibrillation on chronic anticoagulation with Coumadin, dementia/cognitive impairment and hypertension who presents from [facility] with complaints of
shortness of breath, chest discomfort and tachycardia. Patient was found to be in atrial fibrillation with rapid ventricular response on arrival to emergency department. She was placed on IV diltiazem drip. Chest x-ray demonstrated small
bilateral pleural effusions and patchy parenchymal opacity in bilateral lower lungs likely atelectasis. Troponin negative. proBNP 960. INR 1.71. Patient was given IV Lasix 40 mg in emergency department.
Patient is very poor historian and history obtained by review of records and coordinating care providers.
Progress Note - Night Baker
Subjective
Date of Service: May 23, 2024
Feeling well. No complaints.
Objective
Labs:
05/23/24 05:25
05/23/24 05:25
Labs
Hgb 11.8 g/dL (12.0-16.0) L 05/23/24 05:25
Hct 36.6 % (37.0-47.0) L 05/23/24 05:25
Plt Count 251 10^3/uL (130-400) 05/23/24 05:25
PT 19.4 Sec (11.4-14.6) H 05/23/24 05:25
INR 1.66 05/23/24 05:25
Sodium 140 mmol/L (135-145) 05/23/24 05:25
Potassium 3.5 mmol/L (3.5-5.1) 05/23/24 05:25
BUN 25 mg/dl (7-17) H 05/23/24 05:25
Creatinine 0.6 mg/dL (0.6-1.0) 05/23/24 05:25
Glucose 113 mg/dl (70-99) H 05/23/24 05:25
Troponins
05/21/24
11:36
Troponin I < 0.012
Vital Signs and I&O:
Vital Signs
Temp Pulse Resp BP Pulse Ox
98.4 F 98 12 150/76 92
05/23/24 08:06 05/23/24 06:00 05/23/24 06:00 05/23/24 05:20 05/23/24 02:40
Vital Signs
Temp Pulse Resp BP Pulse Ox
98.4 F 98 12 150/76 92
05/23/24 08:06 05/23/24 06:00 05/23/24 06:00 05/23/24 05:20 05/23/24 02:40
Intake & Output
05/21/24 05/22/24 05/23/24 05/24/24
06:59 06:59 06:59 06:59
Intake Total 240 / 240 1200 / 1200
Output Total 2725 / 2725
Balance -2485 / -2485 1200 / 1200
Physical Exam
Physical Exam
GEN: No distress, awake,
HEENT: supple, anicteric, mmm
LUNGS: scatt rhonchi
CV: Irreg, S1/S2, 1/6 syst LSB, S4+
EXT: +1 edema
NEURO: Gross non-focal
SKIN: No rash
[2024-05-23] MEDS: CARDIZEM 30 MG PO (09:03)
[2024-05-23] MEDS: LASIX 40 MG PO (09:03)
[2024-05-23] MEDS: TOPROL XL 100 MG PO (09:04)
[2024-05-23] MEDS: ARISTOCORT/TRIAMCINOLONE 0.1% CREAM 1 APPLIC TOPICAL (09:05)
[2024-05-23 11:16] LABS: Urine Albumin Trace (Neg - Trace); Urine Bilirubin Negative (Negative); Urine Character Slightly Cloudy (Clear); Urine Color Yellow; Urine Glucose Negative (Negative); Urine Ketone Negative (Negative); Urine Leukocyte Negative (Negative); Urine Nitrite Negative (Negative); Urine Occult Blood 1+ (Negative); Urine Specific Gravity 1.025 (<1.030); Urine Urobilinogen 1+ (Neg - 1+)
[2024-05-23] MEDS: KCL 40 MEQ PO (11:16)
--- NOTE | 2024-05-23 11:16 | CM ---
Addendum entered by Lalita Keith 05/23/24 13:03:
[facility]'s VN

Addendum entered by Lalita Keith 05/23/24 12:55:
Spoke w/ pt daughter. Cardio cleared pt for d/c today per nurse.
Daughter confirmed she will transport pt back to and will reach out to facility to re-confirm
Daughter inquired if pt is able to get COVID vaccine tomorrow, will ask nurse to follow up
Addendum entered by Lalita Keith 05/23/24 12:01:
Pt made aware of potential d/c
IMM reviewed, pt given copy. Copy placed into chart
Original Note:
Chart reviewed. Pt spoke w/ hospitalist. Pt poss. d/c today or tomorrow pending cardio
LAUREN spoke with nurse Margaret/ [facility] to inform of upcoming d/c.
Margaret confirmed pharmacy[facility] and to fax any new medications to pharmacy and copy faxed to facility
Margaret stated the latest pt can be accepted back to facility is 5 pm on day of d/c.
[facility] home health referral already completed. Agency was already notified by facility of upcoming services
CM attempted PC to daughter to inform of potential d/c, left VM
Transport forms left on front of chart for arrangement at d/c.
Assisted Living
Report: [phone]
.
Plan: Return to facility w/ [facility]
[2024-05-23 12:46] LABS: Urine Mucus Many; Urine Squamous Cell >30 /LPF (Few)
[2024-05-23 12:48] LABS: Urine Amorphous Seen; Urine White Cell 0-2 /HPF (0-5)
[2024-05-23 12:49] LABS: Urine Bacteria Moderate (Negative)
--- NOTE | 2024-05-23 15:19 | W.PN.HOSP.TC ---
Today's Communication/Plan
-
dc now
Assessment / Plan
Assessment / Plan
#CHF exacerbation
-BNp 960
-chest x ray: Small bilateral pleural effusions, new from examination 2010. Patchy parenchymal opacity within both lower lungs, most likely atelectasis, although pneumonia could have a similar appearance.
Cardiomegaly. No convincing radiographic evidence for active vascular congestion.
-Lasix in ER
-continue lasix 40mg daily
-strict I &O
-daily weight
-fluid restriction
- ECHO: Normal left ventricular chamber size. Mild concentric left ventricular
hypertrophy. Normal regional wall motion. Normal left ventricular systolic
function. Left ventricular ejection fraction is 67% by Suh's biplane method
of discs. Diastolic function indeterminate due to atrial fibrillation.
Normal right ventricular size and function.
Moderate mitral regurgitation.
Mild to moderate tricuspid regurgitation. Estimated pulmonary artery pressure
of 65 mmHg, assuming a right atrial pressure of 8 mmHg.
-cardiology consulted, input appreciated
#atrial fib with RVR
-HR in 130's on admission, now in 70's
-EKG with atrial fib with RVR
-diltiazem continued
-metoprolol continued
-Coumadin continued, gave extra 2 mg yesterday and will uptitrate to 6 mg daily
#DVT prophylaxis
-warfarin
Reviewed fully with Kat silverio
#CODE status
-reviewed with nusrat, 05/22 pt is a DNR
dc now
see dictated note
More than 30 minutes spent in discharge including
Final examination of the patient
Summarizing hospital stay
Instructions for continuing care to all relevant caregivers
Preparation of discharge records, prescriptions, and referral forms
Total time spent (in minutes): 45
Anticipated Discharge: Today
Subjective/Interval History
-
Date of Service: May 23, 2024
Pleasant, feels well and is looking forward to return to her home
Objective Data
-
Labs:
Laboratory Results
05/23/24
05:25
WBC 7.7
Hgb 11.8 L
Hct 36.6 L
Plt Count 251
PT 19.4 H
INR 1.66
Sodium 140
Potassium 3.5
Chloride 102
Carbon Dioxide 28
BUN 25 H
Creatinine 0.6
Glucose 113 H
Calcium 9.1
Vital Signs:
Vital Signs
Temp Pulse Resp BP Pulse Ox
98.0 F 97 24 131/56 92
05/23/24 11:14 05/23/24 10:10 05/23/24 10:10 05/23/24 10:10 05/23/24 02:40
I&O
05/22/24 05/23/24 05/24/24
06:59 06:59 06:59
Intake Total 240 / 240 1200 / 1200
Output Total 2725 / 2725
Balance -2485 / -2485 1200 / 1200
Review of Systems
-
Unable to obtain full review of systems at this time due to: Dementia
History Source: Family (reviewed with dgt on 05/22)
Constitutional: Denies Fever
EENT: Reports No Symptoms Reported
Respiratory: Reports No Symptoms
Cardiac: Reports No Symptoms
Abdomen/GI: Reports No Symptoms
Musculoskeletal: Reports No Symptoms
Physical Exam
-
General: Well Developed, Well Nourished and No Apparent Distress
HEENT: Normocephalic, Atraumatic and Moist Mucous Membranes
Respiratory: Clear to Auscultation, Wheezes and Rales
Cardiac: S1/S2 and Irregular Rhythm
GI: Soft, Nontender and Nondistended
Musculoskeletal: No Clubbing, No Cyanosis and No Edema
Neuro: Awake and Alert
--- NOTE | 2024-05-23 18:24 | W.DS.TRANS ---
DC Summary - Manager Control
-
Discharge Instructions:
Discharge Diagnosis/Procedures Rate dependent CHF
Diet 2 Gram Sodium
Activity With assistance
Driving Restrictions No driving
Blood Work CBC, BMP, INR in 1 week
Specialty Instructions Weigh Daily
Instructions: *PCP/Other Paint Roller Covers Supervisor Heart Failure Instructions
Stand-Alone Forms:
Changes to Home Medications: Yes
Discharge Medications:
DC Medications w/original date entered in [email or web address]
diltiazem HCl 30 mg tablet 30 mg PO BID Arrhythmia 05/21/24
metoprolol succinate 100 mg tablet,extended release 24 hr 100 mg PO DAILY Heart Disease/Condition 05/21/24
triamcinolone acetonide 0.1 % topical cream 1 applic topical DAILY Skin Issues 05/21/24
furosemide 40 mg tablet 40 mg PO DAILY #30 tabs 05/23/24
warfarin 6 mg tablet 6 mg PO DAILY #30 tabs 05/23/24
Home Medication Changes
Lasix to be increased to 40 mg daily
Coumadin to be increased to 6 mg daily
Pending Results: No
--- NOTE | 2024-05-25 09:02 | W.HF.CON ---
Heart Failure
- LV Function
Left ventricular function study result: LV Ejection fraction >40%
Ejection Fraction Percentage: 67
- ARNI
Patient already on ARNI: No
Heart Failure ARNI Not Indicated: LV Ejection Fraction >/= 40%
- ACEI/ARB
Patient already on ACEI/ARB: No
Heart Failure ACEI/ARB Not Indicated: LV Ejection Fraction > 40%
- Beta Gunnar
Patient already on Evidence Based Beta Gunnar: Yes
- Mineralocorticord Receptor Antagonist
Patient already on MRA: No
Heart Failure MRA Not Indicated: LV Ejection Fraction > 40%
- SGLT-2 Inhibitor
Patient already on SGLT-2 Inhibitor: No
Heart Failure SGLT-2 Inhibitor Not Indicated: LV Ejection Fraction >40%
- Afib Anticoagulation
Patient already on Anticoagulation for Afib: Yes
- NYHA CHF Classification
NYHA CHF Classification Level: Class III - Symptoms w/ min exertion, interferes w/ nml daily activity
- ACC/AHA Stage
ACC/AHA Stage: Stage C: Symptomatic Heart Failure
== END 2024-05-23 16:58 | disposition home or self-care (01) | DRG 291 ==
LOC: IMU 14:40
PROVIDERS: Registered Nurse; ADMITTING PHYSICIAN Internal Medicine; ATTENDING PHYSICIAN Internal Medicine; EMERGENCY PHYSICIAN Emergency Medicine; FAMILY PHYSICIAN Internal Medicine; OTHER PHYSICIAN Internal Medicine Cardiovascular Disease
DX: I11.0 Hypertensive heart disease with heart failure (principal); I50.33 Acute on chronic diastolic (congestive) heart failure; I48.21 Permanent atrial fibrillation; J98.11 Atelectasis; J91.8 Pleural effusion in other conditions classified elsewhere; E11.9 Type 2 diabetes mellitus without complications; F03.C0 Unspecified dementia, severe, without behavioral disturbance, psychotic disturbance, mood disturbance, and anxiety; Z79.01 Long term (current) use of anticoagulants; I45.10 Unspecified right bundle-branch block; E78.00 Pure hypercholesterolemia, unspecified; E87.6 Hypokalemia; R79.1 Abnormal coagulation profile; Z79.899 Other long term (current) drug therapy; Z88.1 Allergy status to other antibiotic agents; Z88.8 Allergy status to other drugs, medicaments and biological substances
CPT/HCPCS: 71046; 80048; 80053; 80061; 81003; 81015; 82248; 83735; 83880; 84443; 84484; 85025; 85610; 87070; 87086; 93005; 93306; 96374; 97162; 99285

== ENCOUNTER 2024-06-03 11:52 | Emergency (ER) | payer OTHER, SELFPAY ==
[2024-06-03 12:10] VITALS: BP 135/70
[2024-06-03 13:09] VITALS: BP 121/71
--- NOTE | 2024-06-03 13:10 | ED.GENMED ---
History of Present Illness
General
Chief Complaint: Skin Problem
Source: patient and [facility]
Time Seen by Provider: 06/03/24 13:02
History of Present Illness
History of Present Illness:
84yoF with a history of dementia, CHF, atrial fibrillation, and seborrheic dermatitis presenting via EMS for evaluation of a rash. Patient has dementia and history is provided by [facility] staff. She started to have a rash to her arms and legs a
few weeks ago. She is being treated with triamcinolone cream. Staff noticed that she also had a facial rash today and patient was reporting a burning pain so they called EMS. Patient denies any facial pain or itching on initial assessment. She is
itching her arms and legs on exam. No fevers, chills, vomiting, diarrhea, shortness of breath. Of note, patient was recently hospitalized for a CHF exacerbation. Her leg swelling/redness is at baseline per [facility] staff.
Past History
Past History
ED Past Medical History: Arrthythmia and Other (diveticulsis); Negative GERD, HTN, Hypercholesterolemia, IDDM, NIDDM, [place] or Renal failure
ED Past Surgical History: Gynecological; Negative Appendectomy, Bowel resection, Brain or
Social History
Tobacco: Non-smoker
Alcohol: None
Drug: None
Employment: Employed
Family History
Family History: Hypertension
Phy Exam
General Physical Exam
General Presentation: well appearing and no apparent distress
General age: appears stated age
General Skin: warm and dry
General Habitus: normal and elderly
General Mental: alert
ENT Exam
ENT Exam: normocephalic
Pulmonary Exam
Pulmonary Exam: lungs clear, no respiratory distress, no rales, no crackles, no rhonchi and no wheezing
Skin Exam
Skin Exam: other (Scattered blanchable erythema noted to facial region. No vesicular lesions. No skin sloughing or tenderness to touch. There is also a scattered maculopapular rash to bilateral arms/legs which patient is itching on exam. Chronic
venous stasis changes to b/l legs.)
Psychiatric Exam
Psychiatric Exam: normal mood/affect
Course
Vital Signs
Initial and Last Documented VS:
Initial Vital Signs
Temp Pulse Resp BP Pulse Ox
98.3 F 80 17 135/70 97
06/03/24 12:10 06/03/24 12:10 06/03/24 12:10 06/03/24 12:10 06/03/24 12:10
Last Documented Vital Signs
Temp Pulse Resp BP Pulse Ox
98.3 F 80 17 121/71 97
06/03/24 12:10 06/03/24 12:10 06/03/24 12:10 06/03/24 13:09 06/03/24 13:17
MDM/Problems Addressed
Differential Diagnosis Includes:
84yoF here from her [facility] for a facial rash. Hx of dementia. Ongoing rash to arms/legs x several weeks which is being treated with topical steroids. Staff noticed a facial rash today so sent her to the ED. VSS. Patient does not seem to be
bothered by her facial rash and denies any pain/itching to the face. She is itching at her arms during exam. Scattered erythema to the face noted on exam. No vesicular lesions or unilateral rash to suggest shingles. No skin sloughing or signs of
cellulitis. Exam is consistent with a nonspecific dermatitis.
Will trial course of prednisone and plan for outpatient f/u with dermatology. Care plan discussed with [facility] staff via phone. Patient stable for discharge back to her [facility].
*Critical Care Note
Total Time (30-74mins, 75-104mins- exclusive of procedures): Not Applicable
ED Attending Note
-
Portions of this chart may have been created with voice recognition software.� Occasional wrong word or��sound alike� substitutions may have occurred due to the inherent limitations of voice recognition software.
Discharge Plan
Departure
Patient Disposition: Home (Routine Discharge)
Date of Disposition: 06/03/24
Time of Disposition: 13:21
Patient with high blood pressure during this ER visit?: No
Discharge Problem:
Rash and nonspecific skin eruption
Instructions: Skin Rash (DC)
Prescriptions:
New
prednisone 20 mg tablet
40 mg PO DAILY 5 Days Qty: 10 0RF
acetaminophen [Tylenol] 325 mg capsule
650 mg PO Q6H PRN (Reason: pain) Qty: 30 0RF
No Action
metoprolol succinate 100 mg tablet extended release 24 hr
100 mg PO DAILY
triamcinolone acetonide 0.1 % cream
1 applic TOPICAL DAILY
Rx Instructions:
apply to bilateral arms and legs
diltiazem HCl 30 mg tablet
30 mg PO BID
furosemide 40 mg Tablet
40 mg PO DAILY Qty: 30 0RF
warfarin 6 mg tablet
6 mg PO DAILY Qty: 30 0RF
Referrals:
UNKNOWN - PT DOES,NOT KNOW [Family Provider] -
Lucero Gomez, DO [Active] -
Activity Restrictions/Additional Instructions:
Give prednisone as prescribed.
Please follow-up with a hospital orderly. Return to the ER with any worsening symptoms.
Interventions
Interventions:
*Risk Screen - Suicide Last Done: 06/03/24 12:10
*General Assessment Last Done: 06/03/24 12:10
*Neglect/Abuse Screening Last Done: 06/03/24 12:10
*ED COVID-19 Vaccine History Last Done: 06/03/24 12:16
ED-Skin Assessment Last Done: 06/03/24 12:17
Discharge Date and Time
Print Language: PORTUGUESE
== END 2024-06-03 15:50 | disposition home or self-care (01) ==
LOC: EMR 11:52
PROVIDERS: EMERGENCY PHYSICIAN Emergency Medicine
DX: R21 Rash and other nonspecific skin eruption (principal); I50.9 Heart failure, unspecified; F03.90 Unspecified dementia, unspecified severity, without behavioral disturbance, psychotic disturbance, mood disturbance, and anxiety; I48.91 Unspecified atrial fibrillation
CPT/HCPCS: 99282

== ENCOUNTER 2025-06-04 10:16 | Emergency (ER) | payer OTHER, SELFPAY ==
--- NOTE | 2025-06-04 10:19 | ED.GENMED ---
History of Present Illness
General
Chief Complaint: Skin Problem
Source: ambulance crew
Exam Limitations: dementia
Time Seen by Provider: 06/04/25 10:19
Nursing documentation reviewed up to this point in time: agreed with
History of Present Illness
History of Present Illness:
Note:
CHIEF COMPLAINT(S)
Facial rash persisting for over a week.
HISTORY OF PRESENT ILLNESS
The patient is an 85-year-old female with a history of facial rash that has persisted for over a week. She visited urgent care approximately six to seven days ago, where she was prescribed standard treatment, but has not experienced significant
improvement. The patient is reportedly using a cream that was started yesterday, which she previously used earlier in the year for pruritic skin. The patient was transported by a service to the emergency department for evaluation. Concerns about
potential allergenic triggers in her living environment were investigated by her assisted living nurses, but no causative agents were identified. The patient reports that her face feels 'stretchy' and itchy.
EXTERNAL RECORDS REVIEWED
Review of emergency department and urgent care records indicates a prior prescription for a topical cream for pruritic skin.
PHYSICAL EXAM
General: Alert, no acute distress.
Skin: Erythema throughout the face.
Head: Normocephalic, atraumatic.
Neck: Supple, trachea midline.
Eye, Ears, Nose, Mouth, and Throat: Oral mucosa moist, no lesions.
Cardiovascular: Normal peripheral perfusion, no edema.
Respiratory: Respirations are non-labored.
Gastrointestinal: Abdomen nondistended.
Back: Normal range of motion, normal alignment.
Musculoskeletal: Normal range of motion, normal strength.
Neurological: Alert and oriented to person, place, time, and situation, no focal neurological deficit observed.
Psychiatric: Cooperative, appropriate mood and affect.
PLAN
1. Consult dermatology for further evaluation and management of facial erythema.
2. Continue current topical treatment and monitor for changes.
3. Assess for potential environmental or product-related allergens, with increased vigilance in reporting new symptoms.
DIFFERENTIAL DIAGNOSIS
The Differential Diagnosis includes, in no particular order and is not limited to:
1. Allergic contact dermatitis
2. Seborrheic dermatitis
3. Atopic dermatitis
4. Rosacea
5. Psoriasis
6. Drug-induced rash
7. Infection (e.g., cellulitis)
8. Systemic lupus erythematosus
9. Dermatomyositis
10. Lichen planus
CARE-UPDATE
06/04/25 - 16:00
The patient has been started on ketoconazole and desonide (marketed as Primosynocream) for the management of severe facial dermatitis. Plan includes a dermatology follow-up to monitor the response to treatment. The patient has been discharged to a
group home for continued care.
Disposition:
SUMMARY OF ENCOUNTER
The patient, an 85-year-old female, was seen in the emergency department due to a persistent facial rash lasting for over a week. Despite initial treatment at urgent care, her condition did not improve significantly. Upon evaluation, erythema
throughout the face, scalp, and chin was noted. The patient expressed concerns about itchiness and a 'stretchy' feeling in the skin. Given the inadequate response to previous treatments and her age, heightened concern for potential severe dermatitis
or an infectious process like cellulitis led to a decision to treat with ketoconazole and triamcinolone and consult dermatology for further assessment.
DISPOSITION
Discharge to a group home for continued care.
PLAN
- Continue current topical treatments with ketoconazole and triamcinolone.
- Dermatology follow-up to monitor the response to treatment.
- Vigilant monitoring for any new symptoms or changes in existing symptoms.
PATIENT EDUCATION AND COUNSELING
The patient was advised on the importance of following up with dermatology and watching for any new symptoms, particularly signs of infection.
FOLLOW-UP INSTRUCTIONS
The patient was instructed to follow up with dermatology as arranged. Return precautions were given, advising the return to the emergency department for any worsening of symptoms.
MEDICATION RECONCILIATION
- Ketoconazole cream: Continued for facial dermatitis.
- Triamcinolone cream (triamcinolone acetonide).
MEDICAL DECISION MAKING
- Number and Complexity of Problems Addressed: Chronic conditions affecting care include the patients age and potential for severe dermatological conditions. Differential diagnosis includes allergic contact dermatitis, seborrheic dermatitis, atopic
dermatitis, rosacea, psoriasis, drug-induced rash, infection (such as cellulitis), systemic lupus erythematosus, dermatomyositis, and lichen planus.
- Data:
- Category 2: Management plan discussed with dermatology for ongoing response monitoring and follow-up.
-Risk: Prescription drug management with the initiation of ketoconazole and triamcinolone; a dermatology consultation was deemed necessary due to the risk of complications and the patients advanced age.
DIAGNOSIS
- Seborrheic dermatitis
Past History
Past History
ED Past Medical History: Arrthythmia and Other (diveticulsis); Negative GERD, HTN, Hypercholesterolemia, IDDM, NIDDM, [place] or Renal failure
ED Past Surgical History: Gynecological; Negative Appendectomy, Bowel resection, Brain or
Social History
Tobacco: Non-smoker
Alcohol: None
Drug: None
Employment: Employed
Family History
Family History: Hypertension
Phy Exam
Physical Exam
Physical Exam:
.
Course
Orders/Labs/Results
Orders:
Orders
06/04/25 11:06
Complete Blood Count/With Diff Urgent
Comprehensive Metabolic Panel Urgent
Prothrombin Time Urgent
06/04/25 14:00
Ketoconazole [Nizoral 2% Cream] See Dose Instructions TOPICAL DAILY
Abnormal Lab Results
06/04/25
11:06
Hct 49.3 H %
(37.0-47.0)
MCHC 31.8 L g/dL
(33.0-37.0)
Abs Immat Gran (auto) 0.1 H 10^3/uL
(0-0.05)
Absolute Neuts (auto) 7.2 H 10^3/uL
(1.4-6.5)
Lymphocytes % 17.5 L %
(20.5-51.1)
PT 22.6 H Sec
(11.4-14.6)
Carbon Dioxide 31 H mmol/L
(22-30)
BUN 20 H mg/dl
(7-17)
ALT 38 H U/L
(0-35)
Alkaline Phosphatase 144 H U/L
(38-126)
Total Protein 8.4 H g/dl
(6.3-8.2)
06/04/25 11:06
06/04/25 11:06
Vital Signs
Initial and Last Documented VS:
Initial Vital Signs
Temp
98.1 F
06/04/25 10:28
Last Documented Vital Signs
Temp Pulse Resp BP Pulse Ox
98.1 F 76 18 149/77 96
06/04/25 10:28 06/04/25 10:37 06/04/25 10:37 06/04/25 10:37 06/04/25 10:37
*Pulse Oximetry
SaO2: 96
Oxygen Mode of Delivery: Room air
Patient hypoxic: no
*Critical Care Note
Total Time (30-74mins, 75-104mins- exclusive of procedures): Not Applicable
ED Attending Note
-
Portions of this chart may have been created with voice recognition software.� Occasional wrong word or��sound alike� substitutions may have occurred due to the inherent limitations of voice recognition software.
Discharge Plan
Departure
Patient Disposition: Care Home/SNF
Date of Disposition: 06/04/25
Time of Disposition: 13:16
Patient with high blood pressure during this ER visit?: Yes
Condition: Good
Discharge Problem:
Seborrheic dermatitis
Prescriptions:
New
ketoconazole 2 % cream
1 applic topical DAILY Qty: 30 0RF
No Action
metoprolol succinate 100 mg tablet extended release 24 hr
100 mg PO HS
triamcinolone acetonide 0.1 % cream
1 applic TOPICAL DAILY
diltiazem HCl 30 mg tablet
30 mg PO BID
buspirone [BuSpar] 5 mg Tablet
5 mg PO BID
acetaminophen [Tylenol] 325 mg Tablet
650 mg PO Q6HPRN PRN (Reason: MILD PAIN)
warfarin 7.5 mg Tablet
7.5 mg PO SUWEFR@1900
triamcinolone acetonide 0.1 % Cream
1 applic TOPICAL Q8HPRN PRN (Reason: FACE)
lorazepam 0.5 mg Tablet
0.5 mg PO TIDPRN PRN (Reason: ANXIETY)
carboxymethylcellulose sodium [Refresh Tears] 0.5 % Drops
2 drp BOTH EYES DAILY
warfarin 5 mg Tablet
5 mg PO MOTUTHSA@1900
olanzapine [Zyprexa Zydis] 5 mg Tablet,Disintegrating
5 mg PO DAILY
Daytime Cold-Flu 5-10-325 mg/15 mL Liquid
15 ml PO Q4HPRN PRN (Reason: COLD SYMPTOMS)
potassium chloride 20 mEq Tablet Extended Release
20 meq PO DAILY
furosemide 40 mg tablet
40 mg PO DAILY
Referrals:
Opal Manning DO [Active, Dermatology] - Call in 1-3 days for appt
Joseph Martinez MD [Family Provider, Family Practice]
Activity Restrictions/Additional Instructions:
apply ketoconazole cream to the face once daily, continue to apply triamcinolone to face daily. follow up with dermatology
Discharge Date and Time
Print Language: FIJIAN
[2025-06-04 10:37] VITALS: BP 149/77
[2025-06-04 11:19] LABS: Hematocrit 49.3 % (37.0-47.0); Hemoglobin 15.7 g/dL (12.0-16.0); Mean Corp Hgb Conc. 31.8 g/dL (33.0-37.0); Mean Corpuscular Volume 93.9 fL (81.0-99.0); Nucleated Red Blood Cells % 0 %; Platelet Count 284 10^3/uL (130-400); Red Cell Dist. Width 13.3 % (11.5-14.5)
[2025-06-04 11:28] LABS: INR 1.97; PT 22.6 Sec (11.4-14.6)
[2025-06-04 11:36] LABS: ALT (SGPT) 38 U/L (0-35); AST (SGOT) 33 U/L (14-36); Albumin 4.4 g/dl (3.5-5.0); Alkaline Phosphatase 144 U/L (38-126); Blood Urea Nitrogen 20 mg/dl (7-17); Calcium 9.6 mg/dl (8.4-10.2); Carbon Dioxide 31 mmol/L (22-30); Chloride 102 mmol/L (98-107); Glucose 95 mg/dl (70-99); Potassium 4.9 mmol/L (3.5-5.1); Sodium 138 mmol/L (135-145); Total Protein 8.4 g/dl (6.3-8.2); eGFR > 60.00
[2025-06-04] MEDS: NIZORAL 2% CREAM 1 APPLIC TOPICAL (14:23)
== END 2025-06-04 13:30 ==
LOC: EMR 10:16
PROVIDERS: EMERGENCY PHYSICIAN Emergency Medicine; FAMILY PHYSICIAN Family Medicine
DX: L21.9 Seborrheic dermatitis, unspecified (principal); K21.9 Gastro-esophageal reflux disease without esophagitis; I10 Essential (primary) hypertension; E78.00 Pure hypercholesterolemia, unspecified; E11.9 Type 2 diabetes mellitus without complications; I25.2 Old myocardial infarction; F03.90 Unspecified dementia, unspecified severity, without behavioral disturbance, psychotic disturbance, mood disturbance, and anxiety; Z82.49 Family history of ischemic heart disease and other diseases of the circulatory system; Z90.49 Acquired absence of other specified parts of digestive tract
CPT/HCPCS: 99283; 80053; 85025; 85610

== ENCOUNTER 2025-07-10 14:35 | Emergency (ER) | payer OTHER, SELFPAY ==
[2025-07-10 14:47] VITALS: BP 143/90; BMI 32.7
[2025-07-10 15:09] VITALS: BP 131/65
[2025-07-10 15:23] LABS: Hematocrit 43.9 % (37.0-47.0); Hemoglobin 14.6 g/dL (12.0-16.0); Mean Corp Hgb Conc. 33.3 g/dL (33.0-37.0); Mean Corpuscular Volume 88.7 fL (81.0-99.0); Nucleated Red Blood Cells % 0 %; Platelet Count 229 10^3/uL (130-400); Red Cell Dist. Width 13.2 % (11.5-14.5)
[2025-07-10 15:25] LABS: INR 2.62; PT 27.6 Sec (11.4-14.6)
[2025-07-10 15:26] LABS: APTT 42.9 Sec (23.4-35.0)
[2025-07-10 15:37] LABS: ALT (SGPT) 29 U/L (0-35); AST (SGOT) 33 U/L (14-36); Albumin 4.1 g/dl (3.5-5.0); Alkaline Phosphatase 154 U/L (38-126); Blood Urea Nitrogen 21 mg/dl (7-17); Calcium 9.1 mg/dl (8.4-10.2); Carbon Dioxide 30 mmol/L (22-30); Chloride 103 mmol/L (98-107); Estimated Creatinine Clearance 87 ml/min; Glucose 155 mg/dl (70-99); Potassium 4.7 mmol/L (3.5-5.1); Sodium 139 mmol/L (135-145); Total Protein 8.1 g/dl (6.3-8.2); eGFR > 60.00
[2025-07-10 16:00] VITALS: BP 129/57
--- NOTE | 2025-07-10 16:00 | ED.GENMED ---
History of Present Illness
General
Chief Complaint: Abnormal Lab Value
Source: patient and halfway
Exam Limitations: dementia
Time Seen by Provider: 07/10/25 15:30
Nursing documentation reviewed up to this point in time: agreed with
History of Present Illness
History of Present Illness:
Patient is a 85-year-old female with history atrial fibrillation on Coumadin who presents to the emergency department for evaluation. She is unsure why she was sent to the emergency department however has no current complaints. I did contact
patient's nursing facility who state that her INR was elevated on outpatient lab work yesterday. Per nursing facility 'her INR was 10 and she was sent for a vitamin K shot'. They state that she has not had any obvious bleeding. No hematemesis or
hemoptysis. No hematochezia or melena. No hematuria. No recent falls or trauma.
Patient's paperwork did include lab results from yesterday which showed an INR of 3.2.
Past History
Past History
ED Past Medical History: Arrthythmia and Other (diveticulsis); Negative GERD, HTN, Hypercholesterolemia, IDDM, NIDDM, [place] or Renal failure
ED Past Surgical History: Gynecological; Negative Appendectomy, Bowel resection, Brain or
Social History
Tobacco: Non-smoker
Alcohol: None
Drug: None
Employment: Employed
Family History
Family History: Hypertension
Review of Systems
Review of Systems
Allergies reviewed?: Yes
All Other Systems: ROS reviewed and negative except as documented in HPI and ROS
Phy Exam
Physical Exam
Physical Exam:
Vitals: Mildly hypertensive, otherwise vital signs stable. Afebrile
General: Patient is well appearing, no acute distress
Skin: Warm and dry, no rashes or lesions
Head: Normocephalic, atraumatic
Eyes: Sclera nonicteric.
Throat: Protecting airway
Neck: Normal ROM, no cervical spine tenderness, no meningismus
Cardiac: Regular rate, irregularly irregular rhythm, no murmurs.
Pulm: Normal respiratory effort. Lungs clear bilaterally
Abdomen: Nondistended. Palpable nontender
Extremities: No evidence of cyanosis or edema
Neuro: AAOx2 to person and place, not time. Grossly intact
Psychiatric: Normal affect.
Sepsis
Sepsis Screening
Sepsis Assessment: Sepsis Ruled Out
Sepsis Screen
Sepsis Screen: Sepsis Ruled Out
Date: 07/11/25
Time: 12:12
Course
Orders/Labs/Results
Orders:
Orders
07/10/25 15:08
Complete Blood Count/With Diff Urgent
Comprehensive Metabolic Panel Urgent
PTT Urgent
Prothrombin Time Urgent
07/10/25 15:12
EKG [Electrocardiogram (*1)] Urgent
Reason for Study: Atrial Fibrillation
07/10/25 15:13
EKG- Treatment ONCE
Abnormal Lab Results
07/10/25
15:08
MPV 11.6 H fL
(7.4-10.4)
Neutrophils % 76.0 H %
(42.2-75.2)
Lymphocytes % 16.0 L %
(20.5-51.1)
PT 27.6 H Sec
(11.4-14.6)
APTT 42.9 H Sec
(23.4-35.0)
BUN 21 H mg/dl
(7-17)
Glucose 155 H mg/dl
(70-99)
Alkaline Phosphatase 154 H U/L
(38-126)
07/10/25 15:08
07/10/25 15:08
Vital Signs
Initial and Last Documented VS:
Initial Vital Signs
Temp Pulse Resp BP Pulse Ox
98.2 F 79 16 143/90 94
07/10/25 14:47 07/10/25 14:47 07/10/25 14:47 07/10/25 14:47 07/10/25 14:47
Last Documented Vital Signs
Temp Pulse Resp BP Pulse Ox
98.2 F 101 23 156/98 96
07/10/25 14:47 07/10/25 16:57 07/10/25 16:57 07/10/25 18:48 07/10/25 18:48
MDM/Problems Addressed
Differential Diagnosis Includes:
Not limited to: Medication side effect, lab error, etc.
MDM/Problems Addressed:
85 year old female sent for abnormal INR on outpatient labs yesterday. Patient offers no complaints. No evidence of bleeding or atypical bruising on exam. She is alert and well appearing.
Vitals and physical exam as above.
Labs and coagulation studies were sent prior to my evaluation. Her hemoglobin is stable. Her INR is within the therapeutic range at 2.62.
I did review patients outpatient labs, which were drawn yesterday which show an INR level of 3.2.
There is no indication for coumadin reversal. I did contact patients nursing facility as well as provider at her Warfarin clinic who agree that she is in a therapeutic range.
Will discharge home with return precautions and continued outpatient follow-up. Advised patient to continue warfarin as prescribed.
Chronic conditions affecting care:
Atrial fibrillation on warfarin
Acute Exacerbation and/or Progression of Chronic Illness:
N/A
*Pulse Oximetry
SaO2: 92
Oxygen Mode of Delivery: Room air
Patient hypoxic: no
*EKG
Interpreted by ED Provider?: Yes
EKG Intrepretation Date: 07/10/25
Interpretation: abnormal
Comparison EKG: changes noted
Heart Rate: 77
Rate: normal
Rhythm: a-fib
[place]: normal axis
Interval: normal QT interval
QRS Pattern: low voltage
Ischemia: non-specific ST changes
*Gas Station Supervisor Interpretation
Rate: normal
Interpretation: abnormal
Heart Rate: 78
Rhythm: a-fib
*Critical Care Note
Total Time (30-74mins, 75-104mins- exclusive of procedures): Not Applicable
Data Reviewed
Review of Other/Old Records Reveals: Labs (Reviewed INR drawn outpatient yesterday- 3.2)
Patient Management
Discussion with other providers: Quality Process Engineer (Discussed with provider at patient's warfarin clinic)
ED Attending Note
-
Portions of this chart may have been created with voice recognition software.� Occasional wrong word or��sound alike� substitutions may have occurred due to the inherent limitations of voice recognition software.
Discharge Plan
Departure
Patient Disposition: Home (Routine Discharge)
Date of Disposition: 07/10/25
Time of Disposition: 15:58
Patient with high blood pressure during this ER visit?: Yes
Condition: Good
Discharge Problem:
Anticoagulation monitoring, INR range 2-3
Instructions: Prothrombin time and INR (PT/INR), BLOOD PRESSURE
Prescriptions:
No Action
metoprolol succinate 100 mg tablet extended release 24 hr
100 mg PO HS
triamcinolone acetonide 0.1 % cream
1 applic TOPICAL DAILY
diltiazem HCl 30 mg tablet
30 mg PO BID
buspirone [BuSpar] 5 mg Tablet
5 mg PO BID
acetaminophen [Tylenol] 325 mg Tablet
650 mg PO Q6HPRN PRN (Reason: MILD PAIN)
warfarin 7.5 mg Tablet
7.5 mg PO SUWEFR@1900
triamcinolone acetonide 0.1 % Cream
1 applic TOPICAL Q8HPRN PRN (Reason: FACE)
lorazepam 0.5 mg Tablet
0.5 mg PO TIDPRN PRN (Reason: ANXIETY)
carboxymethylcellulose sodium [Refresh Tears] 0.5 % Drops
2 drp BOTH EYES DAILY
warfarin 5 mg Tablet
5 mg PO MOTUTHSA@1900
olanzapine [Zyprexa Zydis] 5 mg Tablet,Disintegrating
5 mg PO DAILY
Daytime Cold-Flu 5-10-325 mg/15 mL Liquid
15 ml PO Q4HPRN PRN (Reason: COLD SYMPTOMS)
potassium chloride 20 mEq Tablet Extended Release
20 meq PO DAILY
furosemide 40 mg tablet
40 mg PO DAILY
ketoconazole 2 % cream
1 applic topical DAILY Qty: 30 0RF
Referrals:
Joseph Martinez MD [Family Provider, Family Practice]
Activity Restrictions/Additional Instructions:
You were sent here for an abnormal INR. Your INR today in the emergency department was 2.62 which is within the normal range. I did discuss this with your warfarin clinic. Please continue to take warfarin as pres and follow-up with cardiology as
scheduled.
Return to the emergency department with any concerns
Interventions
Interventions:
*Risk Screen - Suicide Last Done: 07/10/25 14:47
*General Assessment Last Done: 07/10/25 14:47
*Neglect/Abuse Screening Last Done: 07/10/25 16:00
*ED COVID-19 Vaccine History Last Done: 07/10/25 14:47
*ED Influenza Vaccine History Last Done: 07/10/25 14:47
[facility] Risk Assessment Tool Last Done: 07/10/25 14:47
*Nursing Disposition Last Done: 07/10/25 19:15
Discharge Date and Time
Discharge Date/Time: 07/10/25 19:20
Print Language: BULGARIAN
[2025-07-10 18:48] VITALS: BP 156/98
== END 2025-07-10 19:20 | disposition home or self-care (01) ==
LOC: EMR 14:35
PROVIDERS: EMERGENCY PHYSICIAN Emergency Medicine; FAMILY PHYSICIAN Family Medicine
DX: R79.1 Abnormal coagulation profile (principal); R03.0 Elevated blood-pressure reading, without diagnosis of hypertension; F03.90 Unspecified dementia, unspecified severity, without behavioral disturbance, psychotic disturbance, mood disturbance, and anxiety; I48.91 Unspecified atrial fibrillation; Z79.01 Long term (current) use of anticoagulants; Z82.49 Family history of ischemic heart disease and other diseases of the circulatory system
CPT/HCPCS: 99284; 80053; 85025; 85610; 85730; 93005